=== PATIENT | male | born 1955 | race Caucasian/White ===

== ENCOUNTER → 2016-06-18 | Outpatient (CLI) | payer SELFPAY ==
[2016-06-18 10:38] LABS: MEAN CORPUSCULAR VOLUME 82.8 FL (80-90)
[2016-06-18 10:40] LABS: HEMATOCRIT 42.4 % (42.0-52.0); HEMOGLOBIN 14.8 g/dL (14.0-18.0); MEAN CORPUSCULAR HEMOGLOBIN 28.9 PG (27-31); MEAN CORPUSCULAR HGB CONC 34.9 g/dL (33-37); MEAN PLATELET VOLUME 8.9 FL (7.4-12.2); RED BLOOD COUNT 5.12 10^6/uL (4.70-6.10)
--- NOTE | 2016-06-18 10:44 | DI ---
PA /LATERAL CHEST X-RAY, 06/18/2016 10:11 AM : Clinical History: Cough. Previous Exam: 01/22/2014. There is no acute soft tissue or bony abnormality. Heart size is normal. There is no acute infiltrate or effusion. An increased AP diameter with increase in the retrosternal airspace and flattening of t he diaphragms are indicative of centrilobular emphysema. Mediastinal structures are normal. There are no pulmonary nodules. Readin. There is no acute infiltrate or effusion. 2. Centrilobular emphysema.
[2016-06-18 10:52] LABS: BLOOD UREA NITROGEN 16 mg/dL (7-22); CALCIUM 8.5 mg/dL (8.7-10.7); EST GLOMERULAR FILTRATION > 60 (>60 ml/min/1.73m(2)); SERUM ALBUMIN 3.7 g/dL (3.5-4.8)
[2016-06-18 10:58] LABS: PLATELET MORPHOLOGY COMMENT NORMAL MORPHOLOGY (NORM); RBC MORPHOLOGY COMMENT NORMAL MORPHOLOGY (NORM)
[2016-06-18 10:59] LABS: BAND NEUTROPHILS % 0 % (0-10); BASOPHILS % (MANUAL) 0 % (0-1); EOSINOPHILS % (MANUAL) 0 % (0-8); LYMPHOCYTES % (MANUAL) 33 % (10-50); MONOCYTES % (MANUAL) 10 % (0-12); NEUTROPHILS % (MANUAL) 57 % (50-80)
[2016-06-18 11:00] LABS: WBC MORPHOLOGY COMMENT SEE COMMENTS (NORM)
== END ==
LOC: MOB RAD 10:13
PROVIDERS: ATTEND Physician Assistant
DX: R05 Cough (principal); J43.2 Centrilobular emphysema
CPT/HCPCS: 36415; 71020; 80053; 85007